=== PATIENT | female | born 1935 | race American Indian/Alaskan Native ===

== ENCOUNTER 2019-07-10 10:00 | Day surgery (SDC) | payer MEDICARE ==
[~2019-07-10 10:00] MED LIST: SODIUM CHLORIDE 0.9% 1000 ML 1,000 ML IV SCH
--- NOTE | 2019-07-10 10:40 | Anesthesia Day of Surgery ---
Anesthesia Day of Surgery - Day of Surgery Patient Examined: Yes Patient H&P Reviewed: Yes Patient is NPO: Yes
--- NOTE | 2019-07-10 10:45 | Anesthesia Consultation ---
Anesthesia Consult and Med Hx Date of service: 07/10/19 - Airway Anesthetic Teeth Evaluation: Partials (lower), Edentulous (upper) ROM Head & Neck: Adequate Mental/Hyoid Distance: Adequate Mallampati Class: Class II Intubation Access Assessment: Good - Pre-Operative Health Status ASA Pre-Surgery Classification: ASA3 Proposed Anesthetic Plan: MAC - Cardiovascular System Hx Hypertension: Yes Hx Pacemaker: Yes - Endocrine Hx Non-Insulin Dependent Diabetes: Yes
[2019-07-10] MEDS ORDERED: PROPOFOL 200 MG/20 ML VIAL IV ONE ×2 (11:23→12:58)
[2019-07-10] MEDS ORDERED: WATER FOR IRRIG STERILE 1,000 ML BOTTLE ONE (11:31)
--- NOTE | 2019-07-10 11:41 | Operative Report ---
Operative Report Operative Report: Date of procedure: 07/10/2019 Procedure: Colonoscopy. Attending physician: Jose Whalen MD Card Painter: Jose Whalen MD Indication: Patient is a 83-year-old female who presents for colonoscopy to evaluate progressive constipation, diffuse abdominal pain and weight loss. This colonoscopy, is done to evaluate patient so that treatment may be directed based on the findings. Consent: Informed consent was obtained after advising the patient and family regarding nature of this procedure, its indications, potential benefits as well as possible complications including but not limited to bleeding perforation and adverse reaction to medication, infection as well as other cardiopulmonary complications. An informed written and verbal consent was then obtained after due opportunity was provided for questions and answers. Monitoring: Patient was monitored continuously with pulse oximetry and electr ocardiographic recordings as well as blood pressure recordings. Vital signs remained stable throughout this procedure with no untoward events. Preoperative assessment: Patient was assessed immediately prior to this procedure for capacity to tolerate monitored anesthesia care and moderate sedation as well as general anesthesia. Patient's ASA classification is 2, Mallampati class is 2, Hyomental distance is 3. Instrument: Olympus video colonoscope [id number] Medications: Propofol given intravenously in divided doses. For details please refer to anesthesia records. Description of procedure: Patient was placed in the left lateral decubitus position after achieving sedation, a digital rectal examination was performed following which the colonoscope was introduced into the anal verge and advanced to the hepatic flexure. Patient had incremental stool density. The preparation was very poor. The colonoscope was subsequently withdrawn with careful inspection of all mucosal surfaces. Patient tolerated this procedure well and was subsequently taken to the recovery room. The following findings were noted. Findings: Patient's preparation was very poor with substantial retained stool. The [place] prep score scale was 2. The examined segments of the colon had substantial retained stool. The ascending colon could not be visualized due to substantial retained stool and inability to see any areas of the ascending colon. On the retroflex view at the anal verge, patient had internal hemorrhoids. Impression: Poor colonoscopic preparation Retained stool Inadequate examination Internal hemorrhoids. Plan:High-fiber diet. Schedule repeat colonoscopy.
--- NOTE | 2019-07-10 11:42 | Discharge Summary ---
Short Stay Discharge Plan Activity: advance as tolerated Weight Bearing Status: Weight Bear as Tolerated Diet: regular Follow up with: DIANNE ALAN MD [Primary Care Provider] - 7 Days
[2019-07-10 12:11] VITALS: BP 162/84
[2019-07-10] MEDS ORDERED: SODIUM CHLORIDE 0.9% 1000 ML 1,000 ML ONE (12:48)
--- NOTE | 2019-07-10 14:26 | Post Anesthesia Evaluation ---
- Post Anesthesia Evaluation Patient Participated: Yes Airway Patent: Yes Stable Respiratory Function: Yes Nausea/Vomiting: No Temp > 96.8F: Yes Pain Manageable: Yes Adequeate Hydration: Yes Anesthesia Complications: No Block Receding Appropriately: Not Applicable Patient on Ventilator: No
== END 2019-07-10 12:18 | disposition home or self-care (01) ==
LOC: EDSEX 10:00 → GIO 10:00
PROVIDERS: ATTEND Internal Medicine Gastroenterology
DX: K59.00 Constipation, unspecified (principal); R63.4 Abnormal weight loss; R10.9 Unspecified abdominal pain; K64.8 Other hemorrhoids; I10 Essential (primary) hypertension; E11.9 Type 2 diabetes mellitus without complications; E03.9 Hypothyroidism, unspecified; Z79.899 Other long term (current) drug therapy; Z79.82 Long term (current) use of aspirin; Z79.84 Long term (current) use of oral hypoglycemic drugs; Z95.0 Presence of cardiac pacemaker
CPT/HCPCS: 45378; 82962; J2704; J7030